=== PATIENT | male | born 1995 | race Caucasian/White ===

== ENCOUNTER 2025-08-19 12:20 | Outpatient (RCR) | payer OTHER, SELFPAY ==
--- NOTE | 2025-08-19 15:10 | HP.OTFCE_ITS ---
Task Lift Floor (Occasional 1-33% of Day): 95 Floor (Frequent 34-66% of Day): 47.5 Floor (Constant 67-100% of Day): 20 Floor PDL: Medium-Heavy Knee (Occasional 1-33% of Day): 95 Knee (Frequent 34-66% of Day): 47.5 Knee (Constant 67-100% of Day): 20 Knee PDL: Medium-Heavy Waist (Occasional 1-33% of Day): 95 Waist (Frequent 34-66% of Day): 47.5 Waist (Constant 67-100% of Day): 20 Waist PDL: Medium-Heavy Shoulder (Occasional 1-33% of Day): 75 Shoulder (Frequent 34-66% of Day): 37.5 Shoulder (Constant 67-100% of Day): 15.7 Shoulder PDL: Medium-Heavy Overhead (Occasional 1-33% of Day): 75 Overhead (Frequent 34-66% of Day): 37.5 Overhead (Constant 67-100% of Day): 15.7 Overhead PDL: Medium-Heavy Comments: pt rates as medium heavy for floor knee waist shoulder and overhead lift Work Activity/Posture Bending: Frequent Ability (34-66% of day) Squatting: Frequent Ability (34-66% of day) Kneeling: Frequent Ability (34-66% of day) Reaching out: Frequent Ability (34-66% of day) Reaching up: Frequent Ability (34-66% of day) Sitting: Frequent Ability (34-66% of day) Walking: Frequent Ability (34-66% of day) Standing: Frequent Ability (34-66% of day) Reference Reference: Duration Sedentary Sedentary Light Light Light Medium Medium Medium Heavy Very Heavy Heavy Occasional (0-33% of day) Frequent (34-66% of day) Constant (67-100% of day) 10 # Negligible Negligible 15 # 8 # Negligible 20 # 10# Negli. 35 # 18 # 7 # 50 # 25 # 10 # 75 # 100 # >100 # 38 # 50 # >50 # 15 # 20 # >20 # Patient Information Height: 6 ft 2 in Weight:: 102.058 kg Hand Dominance: L BP (Medication Use/Usual Values per pt report): none Medical History Medical History Including Restrictions: This 29 year old arrives with dx of L ankle strain. Pt did get X ray which were negative for fracture. Strain occurred June 21 and has been in PT for approx 2 weeks in [place]. Pt is taking advil for pain as needed. Pt states main complaint is he is unable to run. Pt bought brace and had been wearing for past month. has not yet had MRI going through therapy first at this time. 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 Pt bathroom with walk in shower no grab bars. Pt is I in ADL tasks. Pt is able to do IADL tasks however not currently doing yardwork. Drives. Pt goes into community for shopping, eating out ect Physical Examination Physical Examination: Baseline 02 97% HR 79 bpm ROM: Upper Extremity: WFL Lower extremity: WFL Strength: Upper Extremity: L Shoulder flexion: 22.4# R shoulder flexion: 23.6# L bicep: 37.7# R bicep:33.9# L tricep: 37.8# R tricep: 26.5# L ER: 25# R ER: 23.8# Lower Extremith: L hip flexion: 44.5# R hip flexion: 34.2# L quad: 32.5# R quad: 25.4# L hamstrin# R hamstrin.7# Right Animal Rides Manager Strength Average: 106.66 Right Animal Rides Manager Strength Percentile: 35.4th percentile Left Animal Rides Manager Strength Average: 106.66 Left Animal Rides Manager Strength Percentile: 46th percentile Right Lateral Pinch Average: 18.00 Right Lateral Pinch Percentile: 10th percentile Left Lateral Pinch Average: 20.66 Left Lateral Pinch Percentile: 50th percentile Right Tripod Pinch Average: 18.00 Right Tripod Pinch Percentile: 10th percentile Left Tripod Pinch Average: 21.33 Left Tripod Pinch Percentile: 50th percentile Sensation: denies issue with sensation at this time does have occ tingling numbness in foot -- will usually go away if pt repositions self or pumps ankle Fine Motor: denies issue Balance: standing forward reach score: 13 a score of 10 or more indicates low risk for falls Non Material Handling Activities Bending: Bending: trial of 3: 3/3 10x at own pace: 08/21 10x fast: 08/21 HR 140 bpm and 02 97% bends at waist and knees pain in L ankle 11/21 Squatting: squatting: trial of 3: 3/3 10x at own pace: 08/21 10x fast: 08/21 HR 132 bpm and 02 98% able to squat bending at knees comes 50% or more down pain in L ankle 1 Kneeling: Kneeling: trial of 3: 3/3 10x at own pace: 08/21 10x fast: 08/21 HR 149 bpm and 02 98% pain in L ankle 11/21 kneeling alternates legs to complete Reaching out/up: reaching up: trial of 3: 3/3 10x at own pace: 08/21 10x fast: 08/21 reaching out: trial of 3: 3/3 10x at own pace: 08/21 10x fast: 08/21 HR 134 bpm and 02 98% completes in standing Walking: walks x3 laps around gym 1050 feet then 1 mile on treadmill-- pt states probably could have done another mile Did not run or jog for assessment however per pt report he was able to jog this morning approx .25 while in therapy in [place]. pain rating 2/10 Standing: pt does stand during FCE for approx 40-45 min for completion of tasks before sitting per pt can stand for approx 45 min to 1 hour then need to sit for RB -- due to pain in ankle Sitting: pt sits for intake of assessment approx 30 minutes no need for change in posture often per pt sits for approx an hour before needing to get up and move around. Climbing Stairs: able to ascend and descend x2 flight of steps alternating feet no need for support Dynamic Occasional Lifting Capacity Floor Lift: Floor: box (15#)+ 80= 95# HR 134 bpm and 02 98% Pain in L ankle 110 bends at waist able to place on counter keeps load close to body Knee Lift: knee Lift: box (15#)+ 80#+ 95# bends at waist able to keep load close to body Waist Lift: Waist Lift: box (15#)+ 80#= 95# HR 138 bpm and 02 98% takes step to L and back keeps load close to body Shoulder Lift: Shoulder Lift: box (15#)+ 60#= 75# HR 124 bpm and 02 99% L ankle 11/21 able to control load ascending and descending Overhead Lift: Overhead box (15#)+ 60#= 75# HR 134 bpm and 02 99% able to control load ascending and descending Carrying: Carry: box (15#)+ 60#= 75# total carries 52 feet total keeps load close to body Comments: push/pull: 115# plus sled HR 138 bpm and 02 98% push pain in ankle does go up to 10 no increase in pain with pull
== END 2025-08-19 19:00 | disposition home or self-care (01) ==
LOC: OT 12:20
PROVIDERS: PCP Physician Assistant Medical; Referring Provider Physician Assistant Medical; Visit Provider Physician Assistant Medical
DX: S93.402D Sprain of unspecified ligament of left ankle, subsequent encounter (principal)
CPT/HCPCS: 97750